=== PATIENT | male | born 1980 | race African-American/Black ===

== ENCOUNTER 2020-06-15 10:17 | Emergency (ER) | payer OTHER ==
[~2020-06-15] VITALS: Ht 193 cm; Wt 122.5 kg
== END 2020-06-15 16:17 | disposition expired ==
LOC: ED 10:17
DX: I46.9 Cardiac arrest, cause unspecified (principal); R22.31 Localized swelling, mass and lump, right upper limb; R22.32 Localized swelling, mass and lump, left upper limb
CPT/HCPCS: 82962; J0171; J2310; J7030